=== PATIENT | female | born 1995 | race Caucasian/White ===

== ENCOUNTER 2025-01-08 11:00 | Outpatient (RCR) | payer OTHER, SELFPAY | END 2025-01-08 23:59 | disposition home or self-care (01) | LOC: ROT 11:00 | PROVIDERS: ATTENDING PHYSICIAN Internal Medicine | DX: I69.351 Hemiplegia and hemiparesis following cerebral infarction affecting right dominant side (principal); Z73.6 Limitation of activities due to disability; R26.89 Other abnormalities of gait and mobility | CPT/HCPCS: 92507; 92523; 97110; 97112; 97163; 97167; 97530; 97535 ==

== ENCOUNTER 2025-02-06 08:26 | Outpatient (RCR) | payer OTHER, SELFPAY | END 2025-02-10 23:59 | disposition home or self-care (01) | LOC: ROT 08:26 | PROVIDERS: ATTENDING PHYSICIAN Internal Medicine | DX: I69.351 Hemiplegia and hemiparesis following cerebral infarction affecting right dominant side (principal); Z73.6 Limitation of activities due to disability; R26.89 Other abnormalities of gait and mobility; I69.328 Other speech and language deficits following cerebral infarction; I69.318 Other symptoms and signs involving cognitive functions following cerebral infarction | CPT/HCPCS: 92507; 96125; 97110; 97112; 97129; 97130; 97140; 97164; 97168; 97530; 97537 ==

== ENCOUNTER 2025-03-10 15:22 | Outpatient (RCR) | payer OTHER, SELFPAY | END 2025-03-18 23:59 | disposition home or self-care (01) | LOC: ROT 15:22 | PROVIDERS: ATTENDING PHYSICIAN Internal Medicine | DX: I69.351 Hemiplegia and hemiparesis following cerebral infarction affecting right dominant side (principal); Z73.6 Limitation of activities due to disability; R26.89 Other abnormalities of gait and mobility; I69.328 Other speech and language deficits following cerebral infarction; I69.318 Other symptoms and signs involving cognitive functions following cerebral infarction; I69.310 Attention and concentration deficit following cerebral infarction; I69.311 Memory deficit following cerebral infarction | CPT/HCPCS: 92507; 97110; 97112; 97129; 97130; 97530; 97535 ==